=== PATIENT | male | born 1985 | race Caucasian/White ===

== ENCOUNTER 2016-06-04 18:57 | Emergency (ER) | payer MEDICAID ==
[2016-06-04 20:26] VITALS: TEMP 98.1; BMI 39.6
--- NOTE | 2016-06-04 21:10 | EDPRACDOC ---
- General Information Chief Complaint: Wound Stated Complaint: OSTOMY SITE OULLING APART Time Seen by Provider: 06/04/16 20:33 Information Source: Patient Mode Of Arrival: Car Home Medications: Home Medications Carvedilol 12.5 mg PO BID 12/18/14 Allergies/Adverse Reactions: Allergies Allergy/AdvReac Type Severity Reaction Status Date / Time hydrocodone Allergy Intermediate Nausea/Vomi Verified 06/04/16 20:21 ting - History of Present Illness Onset: today Wound Location: LLQ OSTOMY Wound Type: Other Wound Discharge: None Previously Treated In: Surgery Associated Signs and Symptoms: Other Other History: PT PRESENTS TODAY WITH COLOSTOMY THAT IS LEAKING AROUND THE SKIN WITH ASSOCIATED SKIN BREAKING DOWN. PT DENIES FEVER, ABD PAIN, N/V. 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 HAD OSTOMY PLACEMENT WHEN HE WAS 14 D/T SEVERE CHRON'S. ED Past Medical History - History Reviewed Yes Nurses notes reviewed and agree except as marked - Patient Medical History Cardiac History: Reports: Hypertension Respiratory History: Reports: Asthma ( CHILD.... NO CURRENT PROBLEMS ADULT) GI/ History: Reports: Renal Disease (ELEVATED CREATINE), Kidney Stones (12/2014 ) Musculoskeletal History: Reports: Arthritis (ARTHRITIS LEFT KNEE) Psychological History: Denies: Depression Systemic History: Reports: Anemia (2000) - Family Medical History Reports: Hypertension (), Cardiac Disorders (gm). Denies: Diabetes, Cancer, Stroke - Social Medical History Smoking Status: Never smoker EDM Review of Systems - Review of Systems ROS Negative Except as Marked: Yes All systems reviewed and were negative except as marked Constitutional: No Symptoms Reported Respiratory: No Symptoms Reported Cardiovascular: No Symptoms Reported Gastrointestinal: Other Genitourinary: No Symptoms Reported Neurological: No Symptoms Reported Musculoskeletal: No Symptoms Reported Integumentary: No Symptoms Reported - Physical Exam Constitutional: Alert (Awake), No apparent distress Oriented to: Time, Person, Place Last recorded Vital Signs: Last Vital Signs Temp 98.1 F 06/04/16 20:21 Pulse 95 06/04/16 20:21 Resp 20 06/04/16 20:21 BP 159/101 H 06/04/16 20:21 Pulse Ox 96 06/04/16 20:21 Oxygen Pulse Oxygen Saturation 96 O2 Device Room Air Oxygen Flow Rate Fraction of Inspired Oxygen ( FIO2) - HEENT Head: Normal Eye Exam: Normal Neck: Normal, Denies Pain, Midline - Respiratory/Cardiovascular Respiratory: Normal - CTA Cardiovascular: Normal - GI Palpation: Normal Tenderness: Other (NOTED OLD OSTOMY THAT IS SLIGHTLY PROLAPSED WITH SKIN BREAKDOWN; NO ACUTE INFECTION) - Musculoskeletal Back: Normal Extremities: Normal - Integumentary Skin: Normal Lymphatics: Normal - Neurologic Mood Description: Normal Thought: Coherent - Additional Information DR. THURSTON CALLED REGARDING OSTOMY; STATED TO USE STOMA ADHESIVE AND REPLACE OSTOMY BAG. STATES HE WILL FOLLOW UP WITH PT IN OFFICE TOMORROW MORNING. CONVATEC PASTE AND OSTOMY WERE PLACED, 2.5, ON OSTOMY WITH STOMA WAFER. FAMILY HAPPY AND WILL CALL DR. THURSTON FIRST THING TOMORROW MORNING Decision Time to Discharge: 21:53 - Departure Disposition: Home Condition: Stable Final Diagnosis: Complication of ostomy Instructions: Colostomy Care (ED) Education/Counseling Given To: Patient, Family Member Education/Counseling Given Regarding: Diagnosis, Treatment, Follow Up Referrals: Donte Oquendo MD [Primary Care Provider] - One Week Johan Thurston DO [Staff Physician] - One Week Prescriptions: No Action Carvedilol 12.5 mg PO BID Additional Instructions: PLEASE CALL DR. THURSTON'S OFFICE FIRST THING TOMORROW MORNING. HE WILL MAKE AN APPOINTMENT TO SEE YOU TOMORROW.
[2016-06-04 22:07] VITALS: BP 151/97; PULSE 92
== END 2016-06-04 22:04 | disposition home or self-care (01) ==
LOC: ED 18:57 → EDMC 22:04
DX: Z43.3 Encounter for attention to colostomy (principal); I10 Essential (primary) hypertension; Z79.899 Other long term (current) drug therapy
CPT/HCPCS: 99283